=== PATIENT | female | born 1965 | race Two or more races ===

== ENCOUNTER 2022-04-19 09:06 | Outpatient (CLI) | payer OTHER | END 2022-04-19 09:22 | disposition home or self-care (01) | LOC: MRI 09:06 | PROVIDERS: ATTEND General Practice | DX: M25.552 Pain in left hip (principal); R06.83 Snoring; M16.9 Osteoarthritis of hip, unspecified; M54.50 Low back pain, unspecified | CPT/HCPCS: 72148; 73721 ==